=== PATIENT | female | born 1990 | race Caucasian/White ===

== ENCOUNTER 2016-11-06 15:17 | Emergency (ER) | payer OTHER ==
[~2016-11-06] VITALS: Ht 177.8 cm; Wt 90.0 kg
[~2016-11-06 15:17] MED LIST: ERGO50000 PO; MACR100C2 PO; METO10TA PO; ONDA1TAB16 PO; ONDA4; PERC10TA27 PO; PROC1TAB3 PO; PROT40TA PO; SUCR1S PO
[2016-11-06 15:20] VITALS: BP 130/62; PULSE 90; RESP 16; TEMP 97.9; O2SAT 99
[2016-11-06 16:01] LABS: BASOPHIL % 0.2 % (0.0-2.0); EOSINOPHIL % 0.6 % (0.0-4.0); HEMATOCRIT 39.7 % (35.0-46.0); HEMO FLAGS DIFF FINAL; LYMPH % 25.3 % (9.0-44.0); LYMPHOCYTE # 1.9 TH/MM3 (1.0-4.8); MEAN CELL VOLUME 90.6 FL (80.0-100.0); MEAN CORPUSCULAR HEMOGLOBIN 31.3 PG (27.0-34.0); MEAN CORPUSCULAR HGB CONC 34.6 % (32.0-36.0); MONO % 5.6 % (0.0-8.0); NEUT % 68.3 % (16.0-70.0); PLATELET COUNT 214 TH/MM3 (150-450); RED BLOOD COUNT 4.38 MIL/MM3 (4.00-5.30); RED CELL DISTRIBUTION WIDTH 12.8 % (11.6-17.2); WHITE BLOOD COUNT 7.4 TH/MM3 (4.0-11.0)
[2016-11-06 16:04] LABS: BACTERIA, URINE RARE /hpf; BLOOD, URINE NEG (NEG); GLUCOSE,URINE NEG (NEG); KETONE, URINE 40 mg/dL (NEG); MUCUS URINE FEW /lpf (OCC); NITRITE,URINE NEG (NEG); SQUAMOUS EPITHELIAL CELL URINE 4 /hpf (0-5); URINE COLOR YELLOW (YELLW/STRAW)
[2016-11-06 16:07] LABS: COMMENT (UR) CULT NOT INDICATED; CULTURE IF INDICATED CULT NOT INDICATED
[2016-11-06 16:58] LABS: BICARBONATE 25.6 MEQ/L (21.0-32.0); POTASSIUM 4.1 MEQ/L (3.5-5.1)
[2016-11-06] MEDS ORDERED: CLINTAB7 (17:26)
--- NOTE | 2016-11-06 18:20 | PD ---
HPI . Abdominal pain and Chief Complaint: Related Problem Time Seen by Provider: 17:21 Travel History International Travel<30 days: No Contact w/Intl Traveler<30days: No Traveled to known affect area: No History of Present Illness HPI Patient presents stating that she is about 15 weeks and has been having pelvic pain for the last 3 days. She reports some vaginal spotting. She states that she has had a previous ultrasound about 4 weeks ago which showed an IUP. 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 WATCHING BLOOD WORK FOR PRESENT UNTIL AFTER SURGERY ) Tetanus Vaccination: < 5 Years Influenza Vaccination: Yes ?: : 2 Para: 0 Miscarriage: 1 Past Surgical History Abdominal Surgery: No AICD: No Body Medical Devices: NONE Cardiac Surgery: No Cholecystectomy: Yes Ear Surgery: No Eye Surgery: No Gynecologic Surgery: No Joint Replacement: No Oral Surgery: No Pacemaker: No Thoracic Surgery: No Other Surgery: Yes (gastric bypass, disectomy ) Social History Alcohol Use: Yes (before ) Tobacco Use: No Substance Use: Yes (meth , aderral, cocaine before ) Allergies-Medications (Allergen,Severity, Reaction): Coded Allergies: Keflex (Verified Allergy, Intermediate, Hives, 11/06/16) FEVER Reported Meds & Prescriptions Reported Meds & Active Scripts Active Reported Clinical Nutrients Prenat 7.5-0.2 mg ( Vitamins W/ Ferrous S) 1 Tab Tab Review of Systems Except as stated in HPI: all other systems reviewed are Neg General / Constitutional: No: Fever, Chills Genitourinary: Positive: Vaginal Bleeding (spotting), No: Urgency, Frequency, Dysuria, Discharge Physical Exam Narrative GENERAL: Healthy-appearing young woman in no acute distress. SKIN: Warm and dry. HEAD: Atraumatic. Normocephalic. EYES: Pupils equal and round. ENT: No nasal bleeding or discharge. Mucous membranes pink and moist. NECK: Trachea midline. CARDIOVASCULAR: Regular rate and rhythm. Heart sounds are normal. RESPIRATORY: No accessory muscle use. Lungs are clear. GASTROINTESTINAL: Abdomen soft, non-tender, nondistended. MUSCULOSKELETAL: No obvious deformities. No edema. NEUROLOGICAL: Awake and alert. No obvious cranial nerve deficits. Motor grossly within normal limits. Normal speech. PSYCHIATRIC: Appropriate mood and affect; insight and judgment normal. Data Data Last Documented VS Vital Signs Date Time Temp Pulse Resp B/P Pulse Ox O2 Delivery O2 Flow Rate FiO2 11/06/16 17:20 16 11/06/16 15:20 97.9 90 130/62 99 Room Air Orders Urinalysis - C+S If Indicated (11/06/16 15:24) Ed Urine Pregnancytest Poc (11/06/16 15:24) Complete Blood Count With Diff (11/06/16 15:24) Basic Metabolic Panel (Bmp) (11/06/16 15:24) Beta Hcg (Quant/Titer) (11/06/16 15:24) Us Pelvis (Ques Preg/Ectopic) (11/06/16 17:21) Ed Poc Ultrasound (11/06/16 17:53) Labs Laboratory Tests Test 11/06/16 15:44 White Blood Count 7.4 TH/MM3 Red Blood Count 4.38 MIL/MM3 Hemoglobin 13.7 GM/DL Hematocrit 39.7 % Mean Corpuscular Volume 90.6 FL Mean Corpuscular Hemoglobin 31.3 PG Mean Corpuscular Hemoglobin 34.6 % Concent Red Cell Distribution Width 12.8 % Platelet Count 214 TH/MM3 Mean Platelet Volume 9.0 FL Neutrophils (%) (Auto) 68.3 % Lymphocytes (%) (Auto) 25.3 % Monocytes (%) (Auto) 5.6 % Eosinophils (%) (Auto) 0.6 % Basophils (%) (Auto) 0.2 % Neutrophils # (Auto) 5.0 TH/MM3 Lymphocytes # (Auto) 1.9 TH/MM3 Monocytes # (Auto) 0.4 TH/MM3 Eosinophils # (Auto) 0.0 TH/MM3 Basophils # (Auto) 0.0 TH/MM3 CBC Comment DIFF FINAL Differential Comment Urine Color YELLOW Urine Turbidity CLEAR Urine pH 7.0 Urine Specific [place] 1.016 Urine Protein NEG mg/dL Urine Glucose (UA) NEG mg/dL Urine Ketones 40 mg/dL Urine Occult Blood NEG Urine Nitrite NEG Urine Bilirubin NEG Urine Urobilinogen LESS THAN 2.0 MG/DL Urine Leukocyte Esterase TRACE Urine RBC 5 /hpf Urine WBC 5 /hpf Urine Squamous Epithelial 4 /hpf Cells Urine Bacteria RARE /hpf Urine Mucus FEW /lpf Microscopic Urinalysis Comment CULT NOT INDICATED Sodium Level 139 MEQ/L Potassium Level 4.1 MEQ/L Chloride Level 106 MEQ/L Carbon Dioxide Level 25.6 MEQ/L Anion Gap 7 MEQ/L Blood Urea Nitrogen 5 MG/DL Creatinine 0.52 MG/DL Estimat Glomerular Filtration 141 ML/MIN Rate Random Glucose 85 MG/DL Calcium Level 8.9 MG/DL Human Chorionic Gonadotropin, 7860 MIU/ML Quant MDM Medical Decision Making Medical Screen Exam Complete: Yes Emergency Medical Condition: Yes Differential Diagnosis Differential diagnosis of abdominal pain in includes but is not limited to ectopic , spontaneous , UTI, constipation, physiological pain. Narrative Course Patient presents for evaluation of abdominal pain and . CBC is normal. Chemistries are normal. Quantitative hCG is 7860. UA is without infection. Procedures Procedure Narrative Emergency Department Pelvic ultrasound was performed with patient consent. The curvilinear probe was used in the transverse and sagittal views within the suprapubic region revealing + intrauterine . heart rate was 133. The fetus is active. Diagnosis Primary Impression: Abdominal pain affecting Additional Instructions: I would try taking a stool softener. You may take Tylenol as needed for pain. Disposition: 01 DISCHARGE HOME Condition: Stable Alysha Verdin MD Nov 06, 2016 18:20
[2016-11-06 18:30] VITALS: BP 122/64; PULSE 84; RESP 16; O2SAT 99
== END 2016-11-06 19:23 | disposition home or self-care (01) ==
LOC: NEPA 15:17
DX: O26.92 Pregnancy related conditions, unspecified, second trimester (principal); R10.2 Pelvic and perineal pain; Z3A.15 15 weeks gestation of pregnancy; K21.9 Gastro-esophageal reflux disease without esophagitis; G47.30 Sleep apnea, unspecified
CPT/HCPCS: 80048; 81001; 84702; 84703; 85025

== ENCOUNTER 2017-04-27 14:32 | Inpatient (IN) | payer MEDICAID ==
[2017-04-27] VITALS (43 sets, daily range): BP systolic 105–140; BP diastolic 53–78; PULSE 66–87; RESP 17–20; TEMP 97.5–98.7
[~2017-04-27 14:32] MED LIST changes: +CLINTAB7; -ERGO50000 PO; -MACR100C2 PO; -METO10TA PO; -ONDA1TAB16 PO; -ONDA4; -PERC10TA27 PO; -PROC1TAB3 PO; -PROT40TA PO; -SUCR1S PO
[2017-04-27] MEDS ORDERED: LACTATED RINGER'S 1000 ML INJ 1,000 ML IV PRN (15:01)
[2017-04-27] MEDS ORDERED: SODIUM CHLORID 0.9% 500 ML INJ 500 ML IV PRN (15:15)
[2017-04-27] MEDS ORDERED: CITRIC ACID-SODIUM CITRATE LIQ 30 ML UDC PO SCH (15:15)
[2017-04-27] MEDS ORDERED: MINERAL OIL 10 ML VIAL TOPICAL PRN (15:15)
[2017-04-27] MEDS ORDERED: LIDOCAINE HCL 1% 50 ML VIAL INFIL PRN (15:15)
[2017-04-27] MEDS ORDERED: OXYTOCIN 30 UNITS-500ML PREMIX 500 ML IV ONE (15:15)
[2017-04-27] MEDS ORDERED: LIDOCAINE HCL 1% 50 ML VIAL I-DERMAL PRN (15:15)
[2017-04-27] MEDS ORDERED: ONDANSETRON HCL 4 MG/2 ML VIAL IV PRN (15:15)
--- NOTE | 2017-04-27 15:15 | HHI.HP ---
HPI Chief Complaint decreased FM Date Seen: Apr 27, 2017 Travel History International Travel<30 Days: No Contact w/Intl Traveler<30Days: No Known Affected Area: No History of Present Illness HPI 26 yo with iup at 40 wk, presented to [facility] scheduled BPP with c/o decreased FM since last night. States baby is normally active at night. She has felt some movement in the waiting room. BPP was 2/8 points only for fluid. UA dopplers were slightly elevated. She denies any contractions, lof, or vb. 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 Got to FOB during Alcohol Use: No Tobacco Use: No Substance Abuse: Yes (prior methamphetamine use) Allergies-Medications (Allergen,Severity, Reaction): Coded Allergies: Keflex (Verified Allergy, Intermediate, Hives, 11/06/16) FEVER Home Meds Reported Medications Vitamins W/ Ferrous S (Clinical Nutrients Prenat 7.5-0.2 mg)1 Tab Tab 11/06/16 Review of Systems General / Constitutional: No: Fever, Weight Gain, Chills, Other Eyes: No: Diploplia, Blurred Vision, Visual changes, Pain, Photophobia HENT: No: Headaches, Vertigo, Lightheadedness Cardiovascular: No: Irregular Rhythm, Chest Pain or Discomfort, Palpitations, Tachycardia, Syncope, Varicosities, Edema, Cyanosis Respiratory: No: Cough, Short of Breath, Other Gastrointestinal: No: Nausea, Vomiting, Diarrhea Genitourinary: No: Decreased Urinary Output, Oliguria Musculoskeletal: No: Limited ROM, Weakness, Cramping, Edema, Pain Skin: No Rash, No Itching, No Dryness, No Lumps, No Change in Pigmentation, No Change in Nails, No Alopecia, No Lesions Neurologic: No: Weakness, Dizziness, Syncope, Focal Abnormalities, Coordination Problem, Headache, Slurred Speech, Seizures Psychiatric: No: Depression, Suicidal Ideations, Homicidal Ideation Endocrine: No: Heat Intolerance, Cold Intolerance, Polydipsia, Polyuria, Other Physical Exam Narrative GENERAL: Well-nourished, well-developed patient. SKIN: Warm and dry. HEAD: Normocephalic and atraumatic. EYES: No scleral icterus. No injection or drainage. ENT: No nasal drainage noted. Mucous membranes pink. Airway patent. NECK: Supple, trachea midline. No JVD. CARDIOVASCULAR: Regular rate and rhythm without murmurs, gallops, or rubs. RESPIRATORY: Breath sounds equal bilaterally. No accessory muscle use. ABDOMEN/GI: Abdomen soft, non-tender, bowel sounds present, no rebound, no guarding Gravid to4 2 weeks size GENITOURINARY: External Genitalia: intact and normal in appearance BUS glands: [-] Cervix: 1-2//hi Presentation: ceph Membranes: [intact Uterine Contractions: [-] FHT's: Category:I on admission Baseline: [-] Reactive:y Variability: mod Decels: [-] EXTREMITIES: No cyanosis or edema. BACK: Nontender without obvious deformity. No CVA tenderness. NEUROLOGICAL: Awake and alert. Motor and sensory grossly within normal limits. Five out of 5 muscle strength in all muscle groups. Normal speech. Data Data Vital Signs Reviewed: Yes Assessment/Plan Assessment and Plan 26 yo with iup at 40 wk 1) NRFHT- BPP 2/8 today in office, decreased movement since last night. will place on NST and if non-reassuring, will need CD. NST has been reactive since admission. Will have cervical ripening with syed bulb 2) hx of gastric bypass- had normal accucheck x 1 wk. last growth u/s 04/07 EFW 6 #8 oz (55%) 3) h/o substance abuse- methamphetamine nasally. uds neg x 2 in 4) Bipolar- no current meds 5) Fetus- cephalic, approx 7-7.5 lb 6) RH negative- rhogam eval pp 7) GBS negative Zohra Larios MD Apr 27, 2017 15:15
[2017-04-27] MEDS ORDERED: SODIUM CHLOR 0.9% 1000 ML INJ 1,000 ML IV PRN (15:21)
[2017-04-27 16:01] LABS: BLOOD, URINE NEG (NEG); COMMENT (UR) CULT NOT INDICATED; CULTURE IF INDICATED CULT NOT INDICATED; GLUCOSE,URINE NEG (NEG); KETONE, URINE NEG (NEG); NITRITE,URINE NEG (NEG); SQUAMOUS EPITHELIAL CELL URINE 2 /hpf (0-5); URINE COLOR LIGHT-YELLOW (YELLW/STRAW)
[2017-04-27 16:09] LABS: AUTOMATED NEUTROPHIL # 6.1 TH/MM3 (1.8-7.7); BASOPHIL % 0.2 % (0.0-2.0); EOSINOPHIL % 0.4 % (0.0-4.0); HEMATOCRIT 39.5 % (35.0-46.0); HEMO FLAGS DIFF FINAL; LYMPH % 20.7 % (9.0-44.0); LYMPHOCYTE # 1.8 TH/MM3 (1.0-4.8); MEAN CELL VOLUME 90.2 FL (80.0-100.0); MEAN CORPUSCULAR HEMOGLOBIN 31.4 PG (27.0-34.0); MEAN CORPUSCULAR HGB CONC 34.8 % (32.0-36.0); MONO % 6.3 % (0.0-8.0); NEUT % 72.4 % (16.0-70.0); PLATELET COUNT 204 TH/MM3 (150-450); RED BLOOD COUNT 4.38 MIL/MM3 (4.00-5.30); WHITE BLOOD COUNT 8.5 TH/MM3 (4.0-11.0)
[2017-04-27 16:14] LABS: AMPHETAMINE, URINE NEG (NEG); COCAINE, URINE NEG (NEG)
[2017-04-27 16:36] LABS: BARBITURATES, URINE NEG (NEG)
--- NOTE | 2017-04-27 17:33 | PD.OB.ANTE ---
Subjective Interval History OB procedure note Patient is 39 week for induction and cervical ripening. At request of attending physician there was a Dunlap bulb placement in the cervical canal she was placed in the dorsal lithotomy position cervix was grasped with a ring forceps cleaned with a large Q-tip and the large Dunlap bulb was inserted through the cervical os into the cervical canal and insufflated with 25 -30 cc of water. There is no complications this procedure, heart rate tracing reactive before and after procedure Objective Vital Signs Vital Signs Date Time Temp Pulse Resp B/P Pulse Ox O2 Delivery O2 Flow Rate FiO2 04/27/17 17:10 73 04/27/17 17:05 75 04/27/17 17:00 82 04/27/17 16:55 71 04/27/17 16:50 71 04/27/17 16:45 17 04/27/17 16:45 68 04/27/17 16:40 83 04/27/17 16:35 72 04/27/17 16:30 73 04/27/17 16:25 71 04/27/17 16:20 66 04/27/17 16:15 70 04/27/17 16:10 72 04/27/17 16:05 67 04/27/17 16:00 67 04/27/17 15:45 75 18 04/27/17 15:45 97.5 04/27/17 15:40 72 04/27/17 15:35 76 04/27/17 15:30 79 04/27/17 15:25 76 04/27/17 15:22 79 114/64 04/27/17 15:20 72 04/27/17 15:15 82 04/27/17 15:10 74 04/27/17 15:05 87 04/27/17 15:00 79 Lab & Micro Results Test 04/27/17 15:15 White Blood Count 8.5 TH/MM3 Red Blood Count 4.38 MIL/MM3 Hemoglobin 13.7 GM/DL Hematocrit 39.5 % Mean Corpuscular Volume 90.2 FL Mean Corpuscular Hemoglobin 31.4 PG Mean Corpuscular Hemoglobin 34.8 % Concent Red Cell Distribution Width 13.0 % Platelet Count 204 TH/MM3 Mean Platelet Volume 10.2 FL Neutrophils (%) (Auto) 72.4 % Lymphocytes (%) (Auto) 20.7 % Monocytes (%) (Auto) 6.3 % Eosinophils (%) (Auto) 0.4 % Basophils (%) (Auto) 0.2 % Neutrophils # (Auto) 6.1 TH/MM3 Lymphocytes # (Auto) 1.8 TH/MM3 Monocytes # (Auto) 0.5 TH/MM3 Eosinophils # (Auto) 0.0 TH/MM3 Basophils # (Auto) 0.0 TH/MM3 CBC Comment DIFF FINAL Differential Comment Urine Color LIGHT-YELLOW Urine Turbidity CLEAR Urine pH 6.0 Urine Specific [place] 1.010 Urine Protein NEG mg/dL Urine Glucose (UA) NEG mg/dL Urine Ketones NEG mg/dL Urine Occult Blood NEG Urine Nitrite NEG Urine Bilirubin NEG Urine Urobilinogen LESS THAN 2.0 MG/DL Urine Leukocyte Esterase SMALL Urine RBC LESS THAN 1 /hpf Urine WBC 2 /hpf Urine Squamous Epithelial 2 /hpf Cells Microscopic Urinalysis Comment CULT NOT INDICATED Urine Opiates Screen NEG Urine Barbiturates Screen NEG Urine Amphetamines Screen NEG Urine Benzodiazepines Screen NEG Urine Cocaine Screen NEG Urine Cannabinoids Screen NEG Blood Type B NEGATIVE Band and Hold Physical Exam GENERAL: Well-nourished, well-developed patient. CARDIOVASCULAR: Regular rate and rhythm without murmurs, gallops, or rubs. RESPIRATORY: Breath sounds equal bilaterally. No accessory muscle use. ABDOMEN/GI: Abdomen soft, non-tender. Fundus: [-] GENITOURINARY: External Genitalia: intact and normal in appearance Cervix: [-] Dilatation: [-] Effacement: [-] Station: [-] Presentation: [-] Membranes: [-] Uterine Contractions: [-] FHT's: Category: [-] Baseline: [-] Reactive: [-] Variability: [-] Decels: [-] EXTREMITIES: No cyanosis or edema, non-tender, without signs of DVT. Assessment and Plan Assessment and Plan 26 yo with iup at 40 wk 1) NRFHT- BPP 2/8 today, decreased movement since last night. will place on NST and if non-reassuring, will need CD 2) hx of gastric bypass- had normal accucheck x 1 wk. last growth u/s 04/07 EFW 6 #8 oz (55%) 3) h/o substance abuse- methamphetamine nasally. uds neg x 2 in 4) Bipolar- no current meds 5) Fetus- cephalic, approx 7-7.5 lb Ron Thompson II, MD Apr 27, 2017 17:33
[2017-04-27 17:44] LABS: ANION GAP 9 MEQ/L (5-15); AST (GOT) 14 U/L (15-37); BICARBONATE 23.9 MEQ/L (21.0-32.0); BLOOD UREA NITROGEN 6 MG/DL (7-18); CHLORIDE 107 MEQ/L (98-107); GLOMERULAR FILTRATION RATE 141 ML/MIN (>89); POTASSIUM 3.6 MEQ/L (3.5-5.1); SODIUM (NA) 140 MEQ/L (136-145); URIC ACID 3.9 MG/DL (2.6-6.0)
[2017-04-27 17:47] LABS: ALKALINE PHOSPHATASE 143 U/L (45-117); ALT (GPT) 16 U/L (10-53); TOTAL BILIRUBIN ADULT 0.4 MG/DL (0.2-1.0)
[2017-04-27] MEDS ORDERED: OXYTOCIN 30 UNITS/NS 500ML PREMIX IV SCH (18:00)
[2017-04-27] MEDS: LACTATED RINGER'S 1000 ML INJ 1,000 ML IV SCH (18:09)
[2017-04-28] VITALS (48 sets, daily range): BP systolic 42–149; BP diastolic 19–89; PULSE 67–107; RESP 16–22; TEMP 97.8–99
[2017-04-28] MEDS: LACTATED RINGER'S 1000 ML INJ 1,000 ML IV SCH ×2 (00:24→02:47)
[2017-04-28] MEDS ORDERED: fentaNYL 2MCG-BUPIV 0.125% INJ 100 ML ONE (02:08)
[2017-04-28] MEDS ORDERED: ePHEDrine/NS 25 MG/5 ML SYR ONE (02:36)
[2017-04-28] MEDS ORDERED: NO SYSTEM NARCOTICS PRN (03:00)
[2017-04-28] MEDS ORDERED: ePHEDrine/NS 25 MG/5 ML SYR IV PRN (03:00)
[2017-04-28] MEDS ORDERED: DO NOT ADMINISTER ANTICOAGULANTS PRN (03:00)
[2017-04-28] MEDS ORDERED: fentaNYL 2MCG-BUPIV 0.125% 100 ML EPIDURAL SCH (03:00)
--- NOTE | 2017-04-28 07:00 | PD.LABORPN ---
Subjective Subjective pt comfortable with epidural on pitocin 6mu Objective Vital Signs Vital Signs Date Time Temp Pulse Resp B/P Pulse Ox O2 Delivery O2 Flow Rate FiO2 04/28/17 06:34 16 04/28/17 06:30 78 100/59 04/28/17 06:15 98.7 16 04/28/17 06:00 67 103/54 04/28/17 05:43 18 04/28/17 05:30 72 104/52 04/28/17 05:09 16 04/28/17 05:00 103/49 04/28/17 05:00 68 04/28/17 04:30 18 04/28/17 04:30 69 103/46 04/28/17 04:30 98.5 04/28/17 04:15 67 101/43 04/28/17 04:00 67 105/48 04/28/17 03:45 92 04/28/17 03:45 104/58 04/28/17 03:30 18 04/28/17 03:30 80 04/28/17 03:30 103/49 04/28/17 03:15 105/45 04/28/17 03:15 68 04/28/17 03:01 71 04/28/17 03:01 105/64 04/28/17 02:56 18 04/28/17 02:55 105/56 04/28/17 02:55 104 04/28/17 02:51 105/64 04/28/17 02:48 98/53 04/28/17 02:47 20 04/28/17 02:45 82 102/59 04/28/17 02:42 67 109/54 04/28/17 02:40 99/56 04/28/17 02:39 86/52 04/28/17 02:36 84/39 04/28/17 02:35 93/42 04/28/17 02:34 95/50 04/28/17 02:32 81/50 04/28/17 02:29 137/84 04/28/17 02:29 85 04/28/17 02:21 22 04/28/17 02:21 79 132/83 04/28/17 01:30 18 04/28/17 01:15 18 04/28/17 00:30 98.4 04/28/17 00:30 18 04/28/17 00:23 116/59 Objective Pelvic Exam: Cervix: [-] Dilatation: [-] 4 Effacement: [-] 90 Station: [-] -1 Presentation: [-] Membranes: [intact or ruptured] arom Uterine Contractions: [-] FHT's: Category: [-] 1 Baseline: [-] 130s Reactive: [-] Variability: [-] good Decels: [-] Assessment/Plan Problem List: (1) Intrauterine Assessment and Plan IUP at 40 wks, BPP 2/8 yesterday in office, IOL FHR reassuring now, continue pitocin augmentation/epidural anticipate Miranda Michelle MD Apr 28, 2017 07:00
--- NOTE | 2017-04-28 10:07 | PD.OB.DELI ---
Delivery Date: Apr 28, 2017 Anesthesia: Epidural Episiotomy: None Vaginal Delivery: Normal Presentation: Occiput anterior (with occult cord prolapse at delivery of anterior shoulder) Nuchal Cord: Other (occult prolapse with delivery of anterior shoulder) Delayed cord clamping (45 sec): Yes Infant: Male One Minute : 9 Five Minute : 9 Weight: 6#8oz Placenta: Spontaneous delivery, Intact, 3 vessel cord Laceration: Vaginal laceration, 2 deg Repair: Chromic running Additional Information 200 mL Rylee Greco MD Apr 28, 2017 10:07
[2017-04-28] MEDS ORDERED: SODIUM CHLORIDE 0.9% FLUSH 10 ML FLUSH IV FLUSH SCH (10:15)
[2017-04-28] MEDS ORDERED: WITCH HAZEL 50%/GLYCERIN 12.5% 40 PAD JAR TOPICAL PRN (10:15)
[2017-04-28] MEDS ORDERED: ALUMINUM/MAGNESIUM/SIMETH 30 ML CUP PO PRN (10:15)
[2017-04-28] MEDS ORDERED: ONDANSETRON ODT 4 MG TAB PO PRN (10:15)
[2017-04-28] MEDS ORDERED: oxyCODONE/ACETAMINOPHEN 5 MG/325 MG TAB PO PRN ×2 (10:15)
[2017-04-28] MEDS ORDERED: SODIUM CHLORIDE 0.9% FLUSH 10 ML FLUSH IV FLUSH PRN (10:15)
[2017-04-28] MEDS ORDERED: ZOLPIDEM TARTRATE 5 MG TAB PO PRN (10:15)
[2017-04-28] MEDS ORDERED: DOCUSATE SODIUM 50 MG/SENNA 8.6 MG TAB PO PRN (10:15)
[2017-04-28] MEDS ORDERED: BENZOCAINE 20% TOPICAL SPRAY 60 ML CAN TOPICAL PRN (10:15)
[2017-04-28] MEDS: IBUPROFEN 600 MG TAB PO PRN ×2 (14:52→22:12)
[2017-04-28] MEDS: ACETAMINOPHEN 325 MG TAB PO PRN ×2 (14:52→22:12)
[2017-04-28] MEDS ORDERED: DIPHTH/TETANUS/ACEL PERTUSSIS (BOOSTER) 0.5 ML VIAL/PFS IM ONE (16:00)
[2017-04-28] MEDS ORDERED: MEASLES, MUMPS, RUBELLA VACCINE 0.5 ML VIAL SQ ONE (16:00)
--- NOTE | 2017-04-28 16:02 | HHI.DCPOC ---
Discharge Care Plan Diagnosis: (1) (normal spontaneous vaginal delivery) Your Health Problems Are: Vaginal delivery Report Symptoms to Your Doctor -Temperature above 100.5 degrees -Redness, of incision or excessive or foul smelling drainage -Unusual pain or calf pain -Increased vaginal bleeding -Painful or difficulty urinating -Feelings of extreme sadness or anxiety after 2 weeks Goals to Promote Your Health * To prevent worsening of your condition and complications * To maintain your health at the optimal level Directions to Meet Your Goals Take your medications as prescribed Follow your dietary instruction Follow activity as directed Ensure plenty of rest for recovery Drink fluids for hydration Keep your appointments as scheduled Take your immunizations and boosters as scheduled If your symptoms worsen call your PCP, if no PCP go to Urgent Care Center or Emergency Room Smoking is Dangerous to Your Health. Avoid second hand smoke Call the 24-hour crisis hotline for domestic abuse at Rylee Greco MD Apr 28, 2017 16:02
[2017-04-29] MEDS: IBUPROFEN 600 MG TAB PO PRN (05:40)
[2017-04-29] MEDS: ACETAMINOPHEN 325 MG TAB PO PRN (05:40)
--- NOTE | 2017-04-29 08:48 | HHI.OB ---
Subjective Post Day: 1 Remarks s/p Objective Vitals/I&O Vital Signs Date Time Temp Pulse Resp B/P Pulse Ox O2 Delivery O2 Flow Rate FiO2 04/28/17 20:55 18 04/28/17 20:55 126/79 04/28/17 20:55 98 04/28/17 20:55 98.7 04/28/17 12:00 98.1 106 20 118/64 04/28/17 11:03 18 04/28/17 11:00 86 128/73 04/28/17 10:31 79 120/65 04/28/17 10:15 99.0 18 04/28/17 10:06 89 149/71 04/28/17 09:31 80 132/76 04/28/17 09:00 67 123/72 04/28/17 08:59 18 Objective Remarks GENERAL: Well-nourished, well-developed patient. CARDIOVASCULAR: Regular rate and rhythm without murmurs, gallops, or rubs. RESPIRATORY: Breath sounds equal bilaterally. No accessory muscle use. ABDOMEN/GI: Abdomen soft, non-tender. Fundus: Firm, non-tender at umbilicus. GENITOURINARY: Light to moderate bleeding. EXTREMITIES: No cyanosis or edema, non-tender, without signs of DVT. Medications and IVs Current Medications Medications (Trade) Dose Ordered Sig/Anastacio Route Start Time Stop Time Status Last Admin (NS Flush) 2 ml BID IV FLUSH 04/28/17 10:15 (NS Flush) 2 ml UNSCH PRN IV FLUSH 04/28/17 10:15 (Tylenol) 650 mg Q4H PRN PO 04/28/17 10:15 04/29/17 05:40 (Motrin) 600 mg Q6H PRN PO 04/28/17 10:15 04/29/17 05:40 (Percocet 5-325 Mg) 1 tab Q4H PRN PO 04/28/17 10:15 (Percocet 5-325 Mg) 2 tab Q4H PRN PO 04/28/17 10:15 (Americaine 20% Top Spr) 1 spray Q4H PRN TOPICAL 04/28/17 10:15 04/28/17 22:12 (Tucks Pads) 1 applic QID PRN TOPICAL 04/28/17 10:15 04/28/17 22:12 (Yesica-Colace) 2 tab Q12H PRN PO 04/28/17 10:15 (Ambien) 5 mg HS PRN PO 04/28/17 10:15 (Mag-Al Plus Susp Liq) 15 ml Q8H PRN PO 04/28/17 10:15 (Zofran Odt) 4 mg Q6H PRN PO 04/28/17 10:15 Assessment/Plan Problem List: (1) Intrauterine Assessment and Plan 26 yo s/p at 40w1d, induced for non-reassuring testing in office; uncomplicated delivery of healthy male routine PP care circ for prior to discharge routine d/c planning for tmrw Discharge Planning routine, tmrw Rylee Greco MD Apr 29, 2017 08:48
[2017-04-29] MEDS ORDERED: IBUP-232 PO (08:51)
[2017-04-29] MEDS ORDERED: SENN1TAB PO (08:51)
[2017-04-29 10:00] VITALS: BP 132/78; PULSE 78; RESP 18; TEMP 98.2
== END 2017-04-29 15:37 | disposition home or self-care (01) | DRG 775 ==
LOC: H2EB 14:32 → H1EA 04-28 11:42
PROVIDERS: ADMIT Obstetrics & Gynecology; ATTEND Obstetrics & Gynecology
PROC: 10E0XZZ Delivery of Products of Conception, External Approach (ICD-10-PCS; principal; 2017-04-27)
PROC: 00HU33Z Insertion of Infusion Device into Spinal Canal, Percutaneous Approach (ICD-10-PCS; 2017-04-27)
PROC: 3E0R3CZ (ICD-10-PCS; 2017-04-27)
DX: O36.8130 Decreased fetal movements, third trimester, not applicable or unspecified (principal); O99.344 Other mental disorders complicating childbirth; F31.9 Bipolar disorder, unspecified; Z37.0 Single live birth; F41.9 Anxiety disorder, unspecified; O69.81X0 Labor and delivery complicated by cord around neck, without compression, not applicable or unspecified; O71.4 Obstetric high vaginal laceration alone; O99.844 Bariatric surgery status complicating childbirth; Z3A.40 40 weeks gestation of pregnancy
CPT/HCPCS: 80053; 80307; 81001; 84550; 85025; 86900; 86901; 90715; G0481; J2590; J3010; J7120